=== PATIENT | male | born 1965 | race Caucasian/White ===

== ENCOUNTER 2021-12-23 14:30 | Inpatient (IN) | payer OTHER ==
[~2021-12-23] VITALS: Ht 170.2 cm; Wt 68.4 kg
[2021-12-23 14:53] LABS: BASOPHILS % (AUTO) 0.3 % (0.0-5.0); EOSINOPHILS % (AUTO) 0.3 % (0.0-8.0); HEMATOCRIT 50.1 % (42-54); LYMPHOCYTES % (AUTO) 7.8 % (21.0-51.0); MEAN CORPUSCULAR HEMOGLOBIN 30.3 pg (27.0-33.0); MEAN CORPUSCULAR HGB CONC 32.7 g/dL (32.0-36.0); MEAN CORPUSCULAR VOLUME 92.6 fL (79-99); MONOCYTES % (AUTO) 6.4 % (3.0-13.0); NEUTROPHILS % (AUTO) 84.6 % (40.0-77.0); PLATELET COUNT (AUTO) 390 K/uL (130-400); RED BLOOD CELL COUNT(AUTO) 5.41 MIL/uL (4.50-6.20); RED CELL DISTRIBUTION WIDTH 11.9 % (11.0-15.5); WHITE BLOOD COUNT (AUTO) 15.6 K/uL (4.8-10.8)
[2021-12-23 15:08] LABS: CREATININE 0.9 mg/dL (0.5-1.5); POTASSIUM 4.9 mmol/L (3.5-5.1)
[2021-12-23] MEDS ORDERED: IBUPROFEN 400 MG TABLET ONE (15:12)
[2021-12-23 15:13] LABS: ALBUMIN 3.2 g/dL (3.5-5.0); BILIRUBIN,TOTAL 0.9 mg/dL (0.2-1.0)
[2021-12-23] MEDS ORDERED: IBUPROFEN 800 MG TAB PO ONE (15:30)
[2021-12-23] MEDS ORDERED: IOHEXOL-350 75 ML VIAL IV ONE (16:06)
[2021-12-23] MEDS ORDERED: CEFTRIAXONE 1G VIAL IV SCH (21:00)
[2021-12-23] MEDS ORDERED: NICOTINE 21 MG/ 24 HR PATCH TD SCH (21:00)
[2021-12-23] MEDS ORDERED: GUAIFENESIN-DM 200/20 MG 10 ML PO PRN (21:00)
[2021-12-23] MEDS ORDERED: ACETAMINOPHEN 325 MG TAB PO PRN (21:00)
[2021-12-23] MEDS: FAMOTIDINE 20MG TAB PO SCH (21:31)
[2021-12-23] MEDS: DOXYCYCLINE 100MG+NS 250ML 250 ML IV SCH (21:31)
[2021-12-23 21:55] LABS: APPEARANCE,URINE CLEAR (CLEAR); BILIRUBIN,URINE NEGATIVE (NEGATIVE); COLOR,URINE YELLOW (YELLOW); GLUCOSE, URINE (UA) NEGATIVE (NEGATIVE); KETONES,URINE 15 mg/dL (NEGATIVE); LEUKOCYTE ESTERASE ,URINE NEGATIVE (NEGATIVE); NITRATE,URINE NEGATIVE (NEGATIVE); OCCULT BLOOD,URINE TRACE-INTACT (NEGATIVE); PH,URINE 6.5 (5.0-8.0); PROTEIN,URINE NEGATIVE (NEGATIVE); UROBILINOGEN,URINE 0.2 mg/dL (0.2-1.0)
[2021-12-23 22:39] LABS: BACTERIA,URINE None Seen /HPF (None Seen); RBC,URINE 0-1 /HPF (0-1); SQUAMOUS EPITHELIAL CELL,UR Few /HPF (0-2); WBC,URINE 0-1 /HPF (0-1)
[2021-12-24 05:33] LABS: BASOPHILS % (AUTO) 0.2 % (0.0-5.0); EOSINOPHILS % (AUTO) 0.9 % (0.0-8.0); HEMATOCRIT 48.3 % (42-54); LYMPHOCYTES % (AUTO) 9.1 % (21.0-51.0); MEAN CORPUSCULAR HEMOGLOBIN 31.4 pg (27.0-33.0); MEAN CORPUSCULAR HGB CONC 33.3 g/dL (32.0-36.0); MEAN CORPUSCULAR VOLUME 94.2 fL (79-99); NEUTROPHILS % (AUTO) 82.3 % (40.0-77.0); PLATELET COUNT (AUTO) 370 K/uL (130-400); RED BLOOD CELL COUNT(AUTO) 5.13 MIL/uL (4.50-6.20); RED CELL DISTRIBUTION WIDTH 11.9 % (11.0-15.5); WHITE BLOOD COUNT (AUTO) 13.2 K/uL (4.8-10.8)
[2021-12-24 05:44] LABS: CREATININE 0.9 mg/dL (0.5-1.5); MAGNESIUM 2.2 mg/dL (1.80-2.40); PHOSPHORUS 2.8 mg/dL (2.5-4.9); POTASSIUM 5.2 mmol/L (3.5-5.1)
[2021-12-24] MEDS: IPRATROPIUM/ALBUTEROL SULFATE 3 ML SOLUTION IH SCH ×5 (06:52→23:05)
[2021-12-24] MEDS ORDERED: ENOXAPARIN SODIUM 40 MG/0.4 ML SYRINGE SQ SCH (09:00)
[2021-12-24] MEDS: FAMOTIDINE 20MG TAB PO SCH ×2 (10:00→21:02)
[2021-12-24] MEDS: DOXYCYCLINE 100MG+NS 250ML 250 ML IV SCH ×2 (10:00→21:02)
[2021-12-24] MEDS: NICOTINE 21 MG/ 24 HR PATCH TD SCH (10:01)
[2021-12-24] MEDS: ZOSYN 3.375GM +NS 50ML IV SCH ×2 (10:30→17:05)
[2021-12-24] MEDS ORDERED: IBUPROFEN 800 MG TAB ONE (11:07)
[2021-12-24] MEDS ORDERED: IBUPROFEN 800 MG TAB PO ONE (11:30)
[2021-12-24 13:45] LABS: INR 1.16 (0.85-1.15); PROTHROMBIN TIME 12.5 SEC (9.6-11.6)
[2021-12-24 13:46] LABS: PARTIAL THROMBOPLASTIN TIME 38.7 SEC (26.3-35.5)
[2021-12-24] MEDS ORDERED: 0.9%NACL 50ML 50 ML IV ONE (16:41)
[2021-12-24] MEDS ORDERED: KAYEXALATE 15GM/60ML PO STA (17:38)
[2021-12-24] MEDS ORDERED: IBUPROFEN 800 MG TAB PO SCH (21:00)
[2021-12-24] MEDS ORDERED: LORAZEPAM 2 MG/ML 1 ML VIAL IVP PRN (23:30)
[2021-12-24] MEDS ORDERED: THIAMINE HCL 100 MG/ML 2ML VIAL IVP ONE (23:30)
[2021-12-25] MEDS: ZOSYN 3.375GM +NS 50ML IV SCH ×3 (00:53→17:23)
[2021-12-25 05:48] LABS: BASOPHILS % (AUTO) 0.2 % (0.0-5.0); EOSINOPHILS % (AUTO) 0.3 % (0.0-8.0); HEMATOCRIT 43.8 % (42-54); LYMPHOCYTES % (AUTO) 11.3 % (21.0-51.0); MEAN CORPUSCULAR HEMOGLOBIN 30.6 pg (27.0-33.0); MEAN CORPUSCULAR HGB CONC 33.1 g/dL (32.0-36.0); MEAN CORPUSCULAR VOLUME 92.4 fL (79-99); MONOCYTES % (AUTO) 8.3 % (3.0-13.0); NEUTROPHILS % (AUTO) 79.2 % (40.0-77.0); PLATELET COUNT (AUTO) 373 K/uL (130-400); RED BLOOD CELL COUNT(AUTO) 4.74 MIL/uL (4.50-6.20); WHITE BLOOD COUNT (AUTO) 11.8 K/uL (4.8-10.8)
[2021-12-25 06:01] LABS: ALBUMIN 2.3 g/dL (3.5-5.0); BILIRUBIN,TOTAL 0.6 mg/dL (0.2-1.0); CREATININE 0.7 mg/dL (0.5-1.5); POTASSIUM 3.6 mmol/L (3.5-5.1)
[2021-12-25] MEDS: IPRATROPIUM/ALBUTEROL SULFATE 3 ML SOLUTION IH SCH ×4 (06:39→23:16)
[2021-12-25] MEDS: FAMOTIDINE 20MG TAB PO SCH ×2 (09:00→20:16)
[2021-12-25 09:38] LABS: ABG BASE EXCESS -0.9 mmol/L (-2.0-3.0); ABG HCO3 22.3 mmol/L (21.0-28.0); ABG OXYGEN SATURATION 92.1 % (95.0-99.0); ABG PCO2 33 mmHg (35-48)
[2021-12-25] MEDS ORDERED: 0.9%NACL 50ML 50 ML IV ONE (10:14)
[2021-12-25] MEDS: NICOTINE 21 MG/ 24 HR PATCH TD SCH (10:26)
[2021-12-25] MEDS: THIAMINE HCL 100 MG/ML 2ML VIAL IVP SCH (10:26)
[2021-12-25] MEDS ORDERED: VANCOMYCIN PROTOCOL PER PHARMACY IV SCH (12:00)
[2021-12-25] MEDS: M.V.I. IV [ADULT] 10 ML, FOLIC ACID 1 MG, THIAMINE HCL 100 MG in 0.9%NACL 1000ML 1,000 ML IV SCH (13:30)
[2021-12-25] MEDS: DOXYCYCLINE 100MG+NS 250ML 250 ML IV SCH ×2 (13:45→20:16)
[2021-12-25 16:34] VITALS: BP 121/82
[2021-12-25 20:16] VITALS: BP 113/65
[2021-12-25] MEDS ORDERED: ENOXAPARIN SODIUM 40 MG/0.4 ML SYRINGE SQ ONE ×2 (21:30→23:10)
[2021-12-25] MEDS ORDERED: SOLU-MEDROL 125MG VIAL IVP ONE (21:30)
[2021-12-25] MEDS ORDERED: SOLU-MEDROL 125MG VIAL ONE (23:07)
[2021-12-25] MEDS: ASCORBIC ACID 500 MG TAB PO SCH (23:12)
[2021-12-26] VITALS (8 sets, daily range): BP systolic 104–120; BP diastolic 65–84
[2021-12-26] MEDS: DILTIAZEM 60MG TAB PO SCH ×5 (00:29→21:51)
[2021-12-26] MEDS: VANCOMYCIN 1G/250ML KIT 250 ML IV SCH ×2 (00:29→14:08)
[2021-12-26] MEDS: CHLORDIAZEPOXIDE HCL 25 MG CAP PO PRN ×3 (01:28→21:50)
[2021-12-26] MEDS: ZOSYN 3.375GM +NS 50ML IV SCH ×3 (02:47→16:58)
[2021-12-26] MEDS: SOLU-MEDROL 40MG VIAL IVP SCH ×3 (06:07→21:52)
[2021-12-26 06:09] LABS: BASOPHILS % (AUTO) 0.1 % (0.0-5.0); HEMATOCRIT 43.6 % (42-54); LYMPHOCYTES % (AUTO) 6.1 % (21.0-51.0); MONOCYTES % (AUTO) 2.9 % (3.0-13.0); NEUTROPHILS % (AUTO) 90.5 % (40.0-77.0); PLATELET COUNT (AUTO) 383 K/uL (130-400); RED BLOOD CELL COUNT(AUTO) 4.64 MIL/uL (4.50-6.20); WHITE BLOOD COUNT (AUTO) 10.1 K/uL (4.8-10.8)
[2021-12-26] MEDS: IPRATROPIUM/ALBUTEROL SULFATE 3 ML SOLUTION IH SCH ×3 (06:31→18:48)
[2021-12-26 06:37] LABS: CREATININE 0.8 mg/dL (0.5-1.5); MAGNESIUM 1.9 mg/dL (1.80-2.40); POTASSIUM 4.4 mmol/L (3.5-5.1)
[2021-12-26 06:47] LABS: CRP QUANTITATIVE 312.4 mg/L (0.00-9.0)
[2021-12-26] MEDS: DOXYCYCLINE 100MG+NS 250ML 250 ML IV SCH ×2 (09:33→21:52)
[2021-12-26] MEDS: ASCORBIC ACID 500 MG TAB PO SCH ×2 (09:34→21:30)
[2021-12-26] MEDS: THIAMINE HCL 100 MG/ML 2ML VIAL IVP SCH (09:34)
[2021-12-26] MEDS: NICOTINE 21 MG/ 24 HR PATCH TD SCH (09:35)
[2021-12-26] MEDS: FAMOTIDINE 20MG TAB PO SCH ×2 (09:35→21:51)
[2021-12-26] MEDS: ENOXAPARIN SODIUM 40 MG/0.4 ML SYRINGE SQ SCH (09:36)
[2021-12-26] MEDS ORDERED: IOHEXOL 350 MG/ML 100ML INFUS..BTL IV ONE (12:46)
[2021-12-26] MEDS: M.V.I. IV [ADULT] 10 ML, FOLIC ACID 1 MG, THIAMINE HCL 100 MG in 0.9%NACL 1000ML 1,000 ML IV SCH (16:58)
[2021-12-27] MEDS: IPRATROPIUM/ALBUTEROL SULFATE 3 ML SOLUTION IH SCH ×4 (00:32→18:44)
[2021-12-27] MEDS: VANCOMYCIN 1G/250ML KIT 250 ML IV SCH ×3 (01:01→20:28)
[2021-12-27] MEDS: ZOSYN 3.375GM +NS 50ML IV SCH ×3 (01:01→17:51)
[2021-12-27 04:20] VITALS: BP 117/75
[2021-12-27 05:05] LABS: HEMATOCRIT 38.8 % (42-54); MEAN CORPUSCULAR HEMOGLOBIN 30.8 pg (27.0-33.0); MEAN CORPUSCULAR HGB CONC 33.2 g/dL (32.0-36.0); MEAN CORPUSCULAR VOLUME 92.6 fL (79-99); RED BLOOD CELL COUNT(AUTO) 4.19 MIL/uL (4.50-6.20); RED CELL DISTRIBUTION WIDTH 11.9 % (11.0-15.5); WHITE BLOOD COUNT (AUTO) 16.5 K/uL (4.8-10.8)
[2021-12-27 05:43] LABS: ALBUMIN 1.9 g/dL (3.5-5.0); BILIRUBIN,TOTAL 0.3 mg/dL (0.2-1.0); CREATININE 0.7 mg/dL (0.5-1.5); POTASSIUM 3.4 mmol/L (3.5-5.1); TOTAL PROTEIN, SERUM 6.2 g/dL (6.0-8.3)
[2021-12-27 08:03] VITALS: BP 95/62
[2021-12-27] MEDS: ENOXAPARIN SODIUM 40 MG/0.4 ML SYRINGE SQ SCH (08:19)
[2021-12-27] MEDS: DILTIAZEM 60MG TAB PO SCH ×4 (10:00→20:29)
[2021-12-27] MEDS: SOLU-MEDROL 40MG VIAL IVP SCH ×2 (10:23→20:29)
[2021-12-27] MEDS: THIAMINE HCL 100 MG/ML 2ML VIAL IVP SCH (10:26)
[2021-12-27] MEDS: DOXYCYCLINE 100MG+NS 250ML 250 ML IV SCH ×2 (10:26→20:29)
[2021-12-27] MEDS: FAMOTIDINE 20MG TAB PO SCH ×2 (10:27→20:30)
[2021-12-27] MEDS: ASCORBIC ACID 500 MG TAB PO SCH ×2 (10:28→21:30)
[2021-12-27] MEDS: NICOTINE 21 MG/ 24 HR PATCH TD SCH (10:28)
[2021-12-27 12:00] VITALS: BP 112/77
[2021-12-27 12:35] LABS: APPEARANCE BODY FLUID CLOUDY (CLEAR); COLOR,BODY FLUID RED (LT YELLOW); SPECIMENTYPE,BODY FLUID PLEURAL; TOTAL VOLUME,BODY FLUID 30 mL
[2021-12-27 12:42] LABS: BODY FLUID RBC 6325 /cu. mm.; BODY FLUID WBC 6730 /cu. mm.
[2021-12-27 13:40] LABS: BF LYMPHOCYTE 6 %; BF MESOTHELIAL 19 %; BF MONOCYTE 1 %
[2021-12-27 15:36] VITALS: BP 107/60
[2021-12-27] MEDS ORDERED: POTASSIUM CHLORIDE 20MEQ/100ML 100 ML IV PRN (16:00)
[2021-12-27] MEDS ORDERED: LIDOCAINE HCL-MPF 1% 2ML VIAL IV PRN (16:00)
[2021-12-27] MEDS ORDERED: KCL 20 MEQ ERTAB PO PRN (16:00)
[2021-12-27] MEDS ORDERED: MAGNESIUM 2GM PREMIX 50ML 50 ML IV PRN (16:00)
[2021-12-27] MEDS ORDERED: POTASSIUM CHLORIDE 10% ELIXIR 20 MEQ/15 ML UDCUP PO PRN (16:00)
[2021-12-27 20:20] VITALS: BP 121/59
[2021-12-28] MEDS: IPRATROPIUM/ALBUTEROL SULFATE 3 ML SOLUTION IH SCH ×5 (00:06→23:23)
[2021-12-28 00:20] VITALS: BP 119/67
[2021-12-28] MEDS: ZOSYN 3.375GM +NS 50ML IV SCH ×3 (01:04→18:05)
[2021-12-28 04:20] VITALS: BP 121/76
[2021-12-28] MEDS: DILTIAZEM 60MG TAB PO SCH ×4 (05:06→21:57)
[2021-12-28] MEDS: VANCOMYCIN 1G/250ML KIT 250 ML IV SCH (05:07)
[2021-12-28 05:35] LABS: BASOPHILS % (AUTO) 0.1 % (0.0-5.0); HEMATOCRIT 35.7 % (42-54); LYMPHOCYTES % (AUTO) 5.7 % (21.0-51.0); MEAN CORPUSCULAR HEMOGLOBIN 29.8 pg (27.0-33.0); MEAN CORPUSCULAR HGB CONC 32.8 g/dL (32.0-36.0); MEAN CORPUSCULAR VOLUME 90.8 fL (79-99); PLATELET COUNT (AUTO) 402 K/uL (130-400); RED BLOOD CELL COUNT(AUTO) 3.93 MIL/uL (4.50-6.20); RED CELL DISTRIBUTION WIDTH 11.9 % (11.0-15.5); WHITE BLOOD COUNT (AUTO) 12.7 K/uL (4.8-10.8)
[2021-12-28 06:06] LABS: ALBUMIN 1.8 g/dL (3.5-5.0); BILIRUBIN,TOTAL 0.3 mg/dL (0.2-1.0); CREATININE 0.6 mg/dL (0.5-1.5); POTASSIUM 3.7 mmol/L (3.5-5.1); TOTAL PROTEIN, SERUM 5.8 g/dL (6.0-8.3)
[2021-12-28 06:49] LABS: ERYTHROCYTE SEDIMENTATION RATE 59 MM/HR (0-20)
[2021-12-28 08:00] VITALS: BP 116/60
[2021-12-28] MEDS: ASCORBIC ACID 500 MG TAB PO SCH (09:02)
[2021-12-28] MEDS: FAMOTIDINE 20MG TAB PO SCH ×2 (09:02→21:56)
[2021-12-28] MEDS: SOLU-MEDROL 40MG VIAL IVP SCH ×2 (09:03→21:57)
[2021-12-28] MEDS: THIAMINE HCL 100 MG/ML 2ML VIAL IVP SCH (09:03)
[2021-12-28] MEDS: DOXYCYCLINE 100MG+NS 250ML 250 ML IV SCH ×2 (09:03→21:56)
[2021-12-28] MEDS: ENOXAPARIN SODIUM 40 MG/0.4 ML SYRINGE SQ SCH (09:04)
[2021-12-28] MEDS: NICOTINE 21 MG/ 24 HR PATCH TD SCH (09:05)
[2021-12-28 12:00] VITALS: BP 115/70
[2021-12-28] MEDS ORDERED: COMPOUND IV REFRIGERATED 1 EACH IVSOLN MISC PRN (14:00)
[2021-12-28] MEDS: VANCOMYCIN 1.25GM/NS 250ML IVPB SCH ×4 (15:20→21:56)
[2021-12-28 16:00] VITALS: BP 143/84
[2021-12-28 20:00] VITALS: BP 123/78
[2021-12-29] VITALS: BP 135/85
[2021-12-29] MEDS: ZOSYN 3.375GM +NS 50ML IV SCH ×3 (01:10→18:53)
[2021-12-29 04:00] VITALS: BP 135/85
[2021-12-29 05:34] LABS: BASOPHILS % (AUTO) 0.2 % (0.0-5.0); HEMATOCRIT 38.5 % (42-54); LYMPHOCYTES % (AUTO) 6.6 % (21.0-51.0); MEAN CORPUSCULAR HEMOGLOBIN 30.1 pg (27.0-33.0); MEAN CORPUSCULAR HGB CONC 31.9 g/dL (32.0-36.0); MEAN CORPUSCULAR VOLUME 94.4 fL (79-99); MONOCYTES % (AUTO) 6.2 % (3.0-13.0); NEUTROPHILS % (AUTO) 85.2 % (40.0-77.0); PLATELET COUNT (AUTO) 411 K/uL (130-400); RED BLOOD CELL COUNT(AUTO) 4.08 MIL/uL (4.50-6.20); RED CELL DISTRIBUTION WIDTH 12.2 % (11.0-15.5); WHITE BLOOD COUNT (AUTO) 11.3 K/uL (4.8-10.8)
[2021-12-29 05:53] LABS: ALBUMIN 1.9 g/dL (3.5-5.0); BILIRUBIN,TOTAL 0.2 mg/dL (0.2-1.0); CREATININE 0.7 mg/dL (0.5-1.5); POTASSIUM 4.1 mmol/L (3.5-5.1); TOTAL PROTEIN, SERUM 6.1 g/dL (6.0-8.3)
[2021-12-29] MEDS: IPRATROPIUM/ALBUTEROL SULFATE 3 ML SOLUTION IH SCH ×3 (06:07→18:53)
[2021-12-29] MEDS: DILTIAZEM 60MG TAB PO SCH ×4 (06:18→23:50)
[2021-12-29] MEDS: VANCOMYCIN 1.25GM/NS 250ML IVPB SCH ×6 (06:19→21:26)
[2021-12-29 08:00] VITALS: BP 122/71
[2021-12-29] MEDS: DOXYCYCLINE 100MG+NS 250ML 250 ML IV SCH ×2 (09:47→21:25)
[2021-12-29] MEDS: THIAMINE HCL 100 MG/ML 2ML VIAL IVP SCH (09:47)
[2021-12-29] MEDS: FAMOTIDINE 20MG TAB PO SCH ×2 (09:47→21:26)
[2021-12-29] MEDS: ENOXAPARIN SODIUM 40 MG/0.4 ML SYRINGE SQ SCH (09:49)
[2021-12-29] MEDS: NICOTINE 21 MG/ 24 HR PATCH TD SCH (09:49)
[2021-12-29] MEDS: SOLU-MEDROL 40MG VIAL IVP SCH ×2 (09:50→21:25)
[2021-12-29] MEDS: ASCORBIC ACID 500 MG TAB PO SCH (09:50)
[2021-12-29 12:00] VITALS: BP 136/81
[2021-12-29 16:00] VITALS: BP 140/86
[2021-12-29 20:00] VITALS: BP 142/88
[2021-12-30] VITALS (7 sets, daily range): BP systolic 125–138; BP diastolic 77–93
[2021-12-30] MEDS: IPRATROPIUM/ALBUTEROL SULFATE 3 ML SOLUTION IH SCH ×5 (00:34→23:20)
[2021-12-30] MEDS: ZOSYN 3.375GM +NS 50ML IV SCH ×3 (03:02→18:56)
[2021-12-30] MEDS: DILTIAZEM 60MG TAB PO SCH ×4 (04:00→21:07)
[2021-12-30 04:42] LABS: BASOPHILS % (AUTO) 0.2 % (0.0-5.0); HEMATOCRIT 41.6 % (42-54); LYMPHOCYTES % (AUTO) 9.3 % (21.0-51.0); MEAN CORPUSCULAR HGB CONC 32.5 g/dL (32.0-36.0); MEAN CORPUSCULAR VOLUME 95.6 fL (79-99); NEUTROPHILS % (AUTO) 82.4 % (40.0-77.0); PLATELET COUNT (AUTO) 487 K/uL (130-400); RED BLOOD CELL COUNT(AUTO) 4.35 MIL/uL (4.50-6.20); RED CELL DISTRIBUTION WIDTH 12.2 % (11.0-15.5); WHITE BLOOD COUNT (AUTO) 10.3 K/uL (4.8-10.8)
[2021-12-30 04:51] LABS: ALBUMIN 2.1 g/dL (3.5-5.0); BILIRUBIN,TOTAL 0.3 mg/dL (0.2-1.0); CREATININE 0.7 mg/dL (0.5-1.5); POTASSIUM 4.7 mmol/L (3.5-5.1); TOTAL PROTEIN, SERUM 6.3 g/dL (6.0-8.3)
[2021-12-30] MEDS: VANCOMYCIN 1.25GM/NS 250ML IVPB SCH ×2 (05:43)
[2021-12-30] MEDS: THIAMINE HCL 100 MG/ML 2ML VIAL IVP SCH (09:54)
[2021-12-30] MEDS: DOXYCYCLINE 100MG+NS 250ML 250 ML IV SCH ×2 (09:54→21:06)
[2021-12-30] MEDS: ENOXAPARIN SODIUM 40 MG/0.4 ML SYRINGE SQ SCH (09:56)
[2021-12-30] MEDS: ASCORBIC ACID 500 MG TAB PO SCH (09:56)
[2021-12-30] MEDS: FAMOTIDINE 20MG TAB PO SCH ×2 (09:56→21:07)
[2021-12-30] MEDS: SOLU-MEDROL 40MG VIAL IVP SCH ×2 (09:57→21:07)
[2021-12-30] MEDS: NICOTINE 21 MG/ 24 HR PATCH TD SCH (09:57)
[2021-12-30] MEDS: VANCOMYCIN 1G/250ML KIT 250 ML IV SCH ×2 (16:04→21:06)
[2021-12-31] MEDS: ZOSYN 3.375GM +NS 50ML IV SCH ×2 (01:09→09:26)
[2021-12-31] MEDS: DILTIAZEM 60MG TAB PO SCH ×2 (04:00→09:37)
[2021-12-31 04:05] VITALS: BP 114/72
[2021-12-31 05:26] LABS: HEMATOCRIT 42.1 % (42-54); MEAN CORPUSCULAR HGB CONC 32.3 g/dL (32.0-36.0); MEAN CORPUSCULAR VOLUME 92.9 fL (79-99); RED BLOOD CELL COUNT(AUTO) 4.53 MIL/uL (4.50-6.20); RED CELL DISTRIBUTION WIDTH 12.2 % (11.0-15.5); WHITE BLOOD COUNT (AUTO) 11.6 K/uL (4.8-10.8)
[2021-12-31] MEDS: VANCOMYCIN 1G/250ML KIT 250 ML IV SCH (05:54)
[2021-12-31] MEDS: IPRATROPIUM/ALBUTEROL SULFATE 3 ML SOLUTION IH SCH ×2 (06:15→11:05)
[2021-12-31 07:20] VITALS: BP 124/86
[2021-12-31] MEDS: THIAMINE HCL 100 MG/ML 2ML VIAL IVP SCH (09:26)
[2021-12-31] MEDS: FAMOTIDINE 20MG TAB PO SCH (09:27)
[2021-12-31] MEDS: ASCORBIC ACID 500 MG TAB PO SCH (09:27)
[2021-12-31] MEDS: ENOXAPARIN SODIUM 40 MG/0.4 ML SYRINGE SQ SCH (09:27)
[2021-12-31] MEDS: NICOTINE 21 MG/ 24 HR PATCH TD SCH (09:27)
[2021-12-31] MEDS: SOLU-MEDROL 40MG VIAL IVP SCH (09:27)
[2021-12-31] MEDS: DOXYCYCLINE 100MG+NS 250ML 250 ML IV SCH (09:28)
[2021-12-31] MEDS ORDERED: AMOX1TAB16 PO (10:28)
[2021-12-31] MEDS ORDERED: DILT120C89 PO (10:28)
[2021-12-31] MEDS ORDERED: DOXY100C5 PO (10:28)
[2021-12-31] MEDS ORDERED: PRED20TA3 PO (10:28)
[2021-12-31 11:00] VITALS: BP 122/78
== END 2021-12-31 13:15 | disposition home or self-care (01) | DRG 193 ==
LOC: EDH 14:30 → EDHIP 14:31 → 4AH 12-25 12:51
PROVIDERS: ADMIT Internal Medicine; ATTEND Internal Medicine
PROC: 0W993ZZ Drainage of Right Pleural Cavity, Percutaneous Approach (ICD-10-PCS; principal; 2021-12-27)
DX: J18.9 Pneumonia, unspecified organism (principal); J96.90 Respiratory failure, unspecified, unspecified whether with hypoxia or hypercapnia; N17.9 Acute kidney failure, unspecified; J90 Pleural effusion, not elsewhere classified; D68.59 Other primary thrombophilia; J98.11 Atelectasis; J44.0 Chronic obstructive pulmonary disease with (acute) lower respiratory infection; D49.1 Neoplasm of unspecified behavior of respiratory system; E87.5 Hyperkalemia; Z20.822 Contact with and (suspected) exposure to COVID-19; Z77.090 Contact with and (suspected) exposure to asbestos; F17.210 Nicotine dependence, cigarettes, uncomplicated; Z56.0 Unemployment, unspecified
CPT/HCPCS: 32555; 36415; 36600; 71045; 71046; 71260; 71270; 74177; 80048; 80053; 80202; 81001; 82435; 82803; 82945; 82947; 83605; 83615; 83735; 83986; 84100; 84132; 84145; 84157; 84295; 84484; 84550; 85018; 85025; 85027; 85610; 85651; 85730; 86140; 86480; 87040; 87071; 87116; 87205; 87206; 87635; 87804; 89051; 93005; 93306; 94640; 94664; 94667; 94668; C1729; C9803; G0378; J0696; J1650; J2543; J2920; J2930; J3370; J3411; J3490; J7030; J7050; Q9967